=== PATIENT | female | born 1965 | race Caucasian/White ===

== ENCOUNTER 2017-06-14 15:16 | Emergency (ER) | payer MEDICAID ==
[~2017-06-14] VITALS: Ht 167.6 cm; Wt 122.5 kg
[2017-06-14 15:16] VITALS: BP_SYST 129
[2017-06-14 17:19] VITALS: BP_SYST 125
== END 2017-06-14 17:19 | disposition home or self-care (01) ==
LOC: SED 15:16
DX: J20.8 Acute bronchitis due to other specified organisms (principal); J45.909 Unspecified asthma, uncomplicated; E11.9 Type 2 diabetes mellitus without complications; F32.9 Major depressive disorder, single episode, unspecified
CPT/HCPCS: 71045; 99283

== ENCOUNTER 2018-02-11 17:37 | Emergency (ER) | payer MEDICAID ==
[~2018-02-11] VITALS: Ht 167.6 cm; Wt 104.3 kg
[2018-02-11 17:44] VITALS: BP_SYST 140
[2018-02-11 19:09] VITALS: BP_SYST 140
== END 2018-02-11 19:09 | disposition home or self-care (01) ==
LOC: SED 17:37
DX: J06.9 Acute upper respiratory infection, unspecified (principal); J45.909 Unspecified asthma, uncomplicated; E11.9 Type 2 diabetes mellitus without complications; R03.0 Elevated blood-pressure reading, without diagnosis of hypertension; F32.9 Major depressive disorder, single episode, unspecified; E78.5 Hyperlipidemia, unspecified
CPT/HCPCS: 99283

== ENCOUNTER 2018-06-11 09:28 | Emergency (ER) | payer MEDICAID ==
[~2018-06-11] VITALS: Ht 165.1 cm; Wt 104.3 kg
--- NOTE | 2018-06-11 09:30 | NUR ---
patient arrived AOx4 from home c/o worsening vaginal discomfort x 5 days. patient states it hurts when she urinates and the right side of her vaginal opening is red and sore. patient denies any recent sexual activity and states she is menopausal. no other complaint or injury at this time.
--- NOTE | 2018-06-11 09:30 | NUR ---
Patient to ER bed 07 to gown for evaluation. Side rails up.
[2018-06-11 09:35] VITALS: BP_SYST 149
--- NOTE | 2018-06-11 10:00 | NUR ---
ER at bedside examining patient.
[2018-06-11 10:17] LABS: BILIRUBIN,URINE NEGATIVE (NEGATIVE); CLARITY/URINE CLEAR (CLEAR); COLOR,URINE YELLOW (YELLOW); GLUCOSE,URINE 3+ (NEGATIVE); KETONES,URINE NEGATIVE (NEGATIVE); LEUKOCYTE ESTERASE ,URINE TRACE (NEGATIVE); NITRITE, URINE NEGATIVE (NEGATIVE); PROTEIN URINE TRACE (NEGATIVE); UROBILINOGEN,URINE 0.2 (0.2-1.0)
[2018-06-11 10:18] LABS: BLOOD, URINE TRACE (NEGATIVE)
[2018-06-11 10:51] LABS: BACTERIA,URINE FEW /HPF (None Seen)
[2018-06-11 10:52] LABS: MUCUS,URINE None Seen /LPF (None Seen); YEAST,URINE None Seen /HPF (None Seen)
--- NOTE | 2018-06-11 11:20 | NUR ---
Dr. Tidwell preformed a vaginal exam with RN at bedside.
[2018-06-11 11:25] VITALS: BP_SYST 145
--- NOTE | 2018-06-11 11:25 | NUR ---
Patient given written and verbal discharge instructions and verbalizes understanding. ER MD discussed with patient the results and treatment provided. Patient in stable condition. ID arm band removed. Rx of Clotrimazole, bactrim, motrin given. Patient educated on pain management and to follow up with PMD. Pain Scale 0/10. Opportunity for questions provided and answered. Medication side effect fact sheet provided.
--- NOTE | 2018-06-11 11:30 | NUR ---
Warren donohue in ED - 06/11/18 at [address] [email or web address] Tidwell preformed a vaginal exam with RN at bedside.
== END 2018-06-11 11:25 | disposition home or self-care (01) ==
LOC: SED 09:28
DX: N39.0 Urinary tract infection, site not specified (principal); F32.9 Major depressive disorder, single episode, unspecified; F41.9 Anxiety disorder, unspecified; E78.5 Hyperlipidemia, unspecified; E11.9 Type 2 diabetes mellitus without complications
CPT/HCPCS: 81000-TC; 87086; 99283

== ENCOUNTER 2019-03-07 07:44 | Emergency (ER) | payer MEDICAID ==
[~2019-03-07] VITALS: Ht 165.1 cm; Wt 99.8 kg
[2019-03-07 07:53] VITALS: BP_SYST 124
--- NOTE | 2019-03-07 07:53 | NUR ---
Patient to ER bed 7 to gown for evaluation. Side rails up. Report given to Lulu SALGADO.
--- NOTE | 2019-03-07 08:05 | NUR ---
DR FISH AT BEDSIDE FOR EVALUATION
--- NOTE | 2019-03-07 08:10 | NUR ---
pt arrives from home w/ left ear pain. Denies fever. Non other c/o at the moment.
[2019-03-07 08:17] VITALS: BP_SYST 124
--- NOTE | 2019-03-07 08:19 | NUR ---
Patient given written and verbal discharge instructions and verbalizes understanding. ER MD discussed with patient the results and treatment provided. Patient in stable condition. ID arm band removed. Rx of Flonase given. Patient educated on pain management and to follow up with PMD. Pain Scale 3/10.Opportunity for questions provided and answered. Medication side effect fact sheet provided.
== END 2019-03-07 08:19 | disposition home or self-care (01) ==
LOC: SED 07:44
DX: H68.001 Unspecified Eustachian salpingitis, right ear (principal); J45.909 Unspecified asthma, uncomplicated; E11.9 Type 2 diabetes mellitus without complications; F32.9 Major depressive disorder, single episode, unspecified
CPT/HCPCS: 99283

== ENCOUNTER 2019-03-19 17:09 | Emergency (ER) | payer MEDICAID ==
[~2019-03-19] VITALS: Ht 167.6 cm; Wt 93.0 kg
[2019-03-19 17:51] VITALS: BP_SYST 151
--- NOTE | 2019-03-19 20:21 | NUR ---
Patient to ER bed 7 to gown for evaluation. Side rails up. Report given to Katherine SALGADO.
--- NOTE | 2019-03-19 20:23 | NUR ---
Patient AOx4, ambulatory, presents to ED with complaint of cough x2-3 days. Patient states she has been medicating with Robitussin. Patient reports she feels like she cannot lay down because she begins to wheeze. Patient reports no fever. Patient states symptoms began with cold symptoms, sore throat and cough. Patient states she no longer has cold symptoms or sore throat.
--- NOTE | 2019-03-19 20:40 | NUR ---
ER MD Merlos at bedside for medical evaluation.
[2019-03-19 20:53] VITALS: BP_SYST 142
--- NOTE | 2019-03-19 20:53 | NUR ---
Patient given written and verbal discharge instructions and verbalizes understanding. ER MD discussed with patient the results and treatment provided. Patient in stable condition. ID arm band removed. Rx of Cheratussin AC and Zithromax given. Patient educated on pain management and to follow up with PMD. Pain Scale 0/10. Opportunity for questions provided and answered. Medication side effect fact sheet provided.
--- NOTE | 2019-03-19 22:40 | NUR ---
Warren donohue in ED - 03/20/19 at 0005 by [facility] HEMANT Merlos at [facility] for medical evaluation.
== END 2019-03-19 20:53 | disposition home or self-care (01) ==
LOC: SED 17:09
DX: J40 Bronchitis, not specified as acute or chronic (principal); E78.5 Hyperlipidemia, unspecified; E11.9 Type 2 diabetes mellitus without complications; R56.9 Unspecified convulsions; R13.0 Aphagia; F32.9 Major depressive disorder, single episode, unspecified
CPT/HCPCS: 99283

== ENCOUNTER 2019-06-18 10:42 | Emergency (ER) | payer MEDICAID ==
[~2019-06-18] VITALS: Ht 167.6 cm; Wt 91.2 kg
--- NOTE | 2019-06-18 11:00 | NUR ---
PATIENT TO ER #5
--- NOTE | 2019-06-18 11:02 | NUR ---
Patient arrived in the ED c/o cough and congestion that started today. Denied any chest pain or shortness of breath. Denied any fevers, nausea, vomiting, or chills. Patient is alert and oriented x4, respirations even and unlabored, speaking in full sentences, ambulating with a steady gait. VSS, pain level 0/10. Informed of wait time. Instructed to notify ED staff for any changes in condition or worsening of symptoms. Patient verbalized understanding.
[2019-06-18] MEDS ORDERED: SIMV20TA6 PO (11:07)
[2019-06-18] MEDS ORDERED: CLON0.5T12 PO (11:07)
[2019-06-18] MEDS ORDERED: METF-795 PO (11:07)
[2019-06-18] MEDS ORDERED: SITA50TA3 PO (11:07)
[2019-06-18] MEDS ORDERED: [UNRECOGNIZED DRUG - CODE] PO (11:07)
[2019-06-18] MEDS ORDERED: LAMO5TAB3 PO (11:07)
[2019-06-18] MEDS ORDERED: ARIP10TA9 PO (11:07)
[2019-06-18 11:10] VITALS: BP_SYST 132
--- NOTE | 2019-06-18 11:34 | NUR ---
ER Dr. Desai at bedside examining patient.
--- NOTE | 2019-06-18 11:40 | NUR ---
X-ray done at bedside as ordered by Dr. Desai. Patient tolerated the procedure well.
[2019-06-18 12:00] VITALS: BP_SYST 132
--- NOTE | 2019-06-18 12:03 | NUR ---
Patient given written and verbal discharge instructions and verbalizes understanding. ER MD discussed with patient the results and treatment provided. Patient in stable condition. ID arm band removed. Rx of Zpak and Bromfed given. Patient educated on pain management and to follow up with PMD. Pain Scale 0/10. Opportunity for questions provided and answered. Medication side effect fact sheet provided.
== END 2019-06-18 12:03 | disposition home or self-care (01) ==
LOC: SED 10:42
DX: J20.8 Acute bronchitis due to other specified organisms (principal); J45.909 Unspecified asthma, uncomplicated; E11.9 Type 2 diabetes mellitus without complications; F32.9 Major depressive disorder, single episode, unspecified; Z79.899 Other long term (current) drug therapy
CPT/HCPCS: 71045; 99283

== ENCOUNTER 2022-09-12 09:13 | Emergency (ER) | payer MEDICAID ==
[~2022-09-12] VITALS: Ht 167.6 cm; Wt 93.9 kg
[~2022-09-12 09:13] MED LIST: ARIP10TA9 PO; CLON0.5T4 PO; LAMO5TAB3 PO; METF-863 PO; SIMV-43 PO; SITA50TA3 PO; [UNRECOGNIZED DRUG - CODE] PO
[2022-09-12 09:24] VITALS: BP_SYST 127
--- NOTE | 2022-09-12 09:30 | NUR ---
URINE CUP PROVIDED. COMFORT MEASURES AND SUPPORTIVE CARE INITIATED. ESCORTED TO ED ROOM. PREP FOR ERMD EVAL.
--- NOTE | 2022-09-12 09:36 | NUR ---
RECIVED PT FROM TRIAGE NURSE PT BIB BY SELF WITH WITH C/O VAGINAL IRRITATION THAT STARTED LAST SUNDAY. PT THOUGHT IT WAS A YEAST INFECTION AND HAS USED MONISTAT 3 DAYS AGO BUT THAT DID NOT HELP SO SHE DECIDED TO COME INTO THE ER. PT HAS SWEELING
--- NOTE | 2022-09-12 09:42 | NUR ---
ER at bedside examining patient.
--- NOTE | 2022-09-12 09:43 | NUR ---
RECIVED PT FROM TRIAGE NURSE PT BIB BY SELF WITH WITH C/O VAGINAL IRRITATION THAT STARTED LAST SUNDAY. PT THOUGHT IT WAS A YEAST INFECTION AND HAS USED MONISTAT 3 DAYS AGO BUT THAT DID NOT HELP SO SHE DECIDED TO COME INTO THE ER. PT HAS SWELLING IN THE VAGINAL AREA ALONG SIDE WITH WHITE DISCHARGE INSIDE AND ON THE OUTSIDE OF THE VAGINAL AREA. PT COMPLAINS OF A BURNING SENSATION WHILE RESTING AND URUINATING. PT HAS 7 OUT OF 10 PAIN.
[2022-09-12 09:53] LABS: BILIRUBIN,URINE NEGATIVE (NEGATIVE); CLARITY/URINE TURBID (CLEAR); COLOR,URINE YELLOW (YELLOW); GLUCOSE,URINE 3+ (NEGATIVE); KETONES,URINE NEGATIVE (NEGATIVE); LEUKOCYTE ESTERASE ,URINE 2+ (NEGATIVE); NITRITE, URINE NEGATIVE (NEGATIVE); PROTEIN URINE NEGATIVE (NEGATIVE); UROBILINOGEN,URINE 0.2 (0.2-1.0)
[2022-09-12 09:54] LABS: BLOOD, URINE TRACE (NEGATIVE)
[2022-09-12 10:00] LABS: BACTERIA,URINE MODERATE /HPF (None Seen); RBC,URINE 0-3 /HPF (0-3)
[2022-09-12] MEDS ORDERED: TRAM50TA2 PO (10:24)
[2022-09-12] MEDS ORDERED: NITR-85 PO (10:24)
[2022-09-12] MEDS ORDERED: FLUC200T PO (10:24)
--- NOTE | 2022-09-12 10:25 | NUR ---
PELVIC EXAM DONE BY DR. BRADY WITH RN AT BEDSIDE.
[2022-09-12 10:52] VITALS: BP_SYST 138
--- NOTE | 2022-09-12 10:53 | NUR ---
Patient given written and verbal discharge instructions and verbalizes understanding. ER MD discussed with patient the results and treatment provided. Patient in stable condition. ID arm band removed. Rx of TRAMADOL,FLUCONAZOLE,AND NITROFURANTOIN given. Patient educated on pain management and to follow up with PMD. Pain Scale 7 OUT OF TEN . Opportunity for questions provided and answered. Medication side effect fact sheet provided.
== END 2022-09-12 10:53 | disposition home or self-care (01) ==
LOC: SED 09:13
DX: N76.0 Acute vaginitis (principal); N39.0 Urinary tract infection, site not specified; R30.0 Dysuria; J45.909 Unspecified asthma, uncomplicated; E78.5 Hyperlipidemia, unspecified; E11.9 Type 2 diabetes mellitus without complications; Z79.899 Other long term (current) drug therapy
CPT/HCPCS: 81000; 87086; 99284

== ENCOUNTER 2023-03-27 10:05 | Emergency (ER) | payer MEDICAID ==
[~2023-03-27] VITALS: Ht 167.6 cm; Wt 93.0 kg
[~2023-03-27 10:05] MED LIST changes: +FLUC200T PO; +NITR-85 PO; +TRAM50TA2 PO
[2023-03-27 10:11] VITALS: BP_SYST 149; PULSE 76; RESP 18; TEMP 98.3; O2SAT 94
[2023-03-27] MEDS ORDERED: NACL30SP2 NS (10:35)
[2023-03-27] MEDS ORDERED: AUG875 PO (10:35)
[2023-03-27 11:07] LABS: COVID19 ANTIGEN SOFIA FIA NEGATIVE (NEGATIVE)
[2023-03-27 11:10] LABS: INFLUENZA TYPE A Negative (NEGATIVE); INFLUENZA TYPE B NEGATIVE (NEGATIVE)
[2023-03-27 12:04] VITALS: BP_SYST 149; PULSE 76; RESP 18; TEMP 98.3; O2SAT 94
== END 2023-03-27 12:00 | disposition home or self-care (01) ==
LOC: SED 10:05
DX: J01.90 Acute sinusitis, unspecified (principal); R05.9 Cough, unspecified; J45.909 Unspecified asthma, uncomplicated; E78.9 Disorder of lipoprotein metabolism, unspecified; E11.9 Type 2 diabetes mellitus without complications; Z79.899 Other long term (current) drug therapy; Z20.822 Contact with and (suspected) exposure to COVID-19
CPT/HCPCS: 36415; 99283

== ENCOUNTER 2023-04-08 10:50 | Emergency (ER) | payer MEDICAID ==
[~2023-04-08] VITALS: Ht 167.6 cm; Wt 93.4 kg
[~2023-04-08 10:50] MED LIST changes: +AUG875 PO; +NACL30SP2 NS
[2023-04-08 10:55] VITALS: BP_SYST 132; PULSE 75; RESP 18; TEMP 97.6; O2SAT 96
[2023-04-08 12:02] LABS: INFLUENZA TYPE A Negative (NEGATIVE); INFLUENZA TYPE B NEGATIVE (NEGATIVE)
[2023-04-08] MEDS ORDERED: AZIT-93 PO (12:25)
[2023-04-08] MEDS ORDERED: PRED20TA PO (12:25)
[2023-04-08 12:37] VITALS: BP_SYST 132; PULSE 75; RESP 18; TEMP 97.6; O2SAT 96
== END 2023-04-08 12:35 | disposition home or self-care (01) ==
LOC: SED 10:50
DX: R05.9 Cough, unspecified (principal); J45.909 Unspecified asthma, uncomplicated; E11.9 Type 2 diabetes mellitus without complications; E78.5 Hyperlipidemia, unspecified; Z79.899 Other long term (current) drug therapy; Z20.822 Contact with and (suspected) exposure to COVID-19
CPT/HCPCS: 36415; 99283